=== PATIENT | female | born 1985 | race Caucasian/White ===

== ENCOUNTER 2020-12-13 16:03 | Emergency (ER) | payer OTHER ==
[2020-12-13] MEDS ORDERED: ACYCLOVIR400 MG PO (17:04)
[2020-12-13] MEDS ORDERED: CEPHALEXIN500 M1 PO (17:04)
== END 2020-12-13 17:12 | disposition home or self-care (01) ==
LOC: ER1 16:03
DX: A60.04 Herpesviral vulvovaginitis (principal); N39.0 Urinary tract infection, site not specified
CPT/HCPCS: 71046; 81001; 84703; 87077; 87086; 87186; 99283